=== PATIENT | male | born 2000 | race Caucasian/White ===

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

== ENCOUNTER 2021-07-08 21:15 | Emergency (ER) | payer BC, SELFPAY ==
[2021-07-08 21:17] VITALS: BP 147/83; PULSE 102; RESP 18; TEMP 36.6; O2SAT 100
[2021-07-08 21:24] VITALS: BP 147/83; PULSE 102; RESP 18; TEMP 36.6; O2SAT 100
--- NOTE | 2021-07-08 21:47 | ED.WOUNDLAC ---
HPI - Wound/Laceration General Chief Complaint: Wound/Laceration Stated Complaint: dog bite Time Seen by Provider: 07/08/21 21:25 Source: patient Mode of arrival: ambulatory Limitations: no limitations History of Present Illness HPI narrative: This is a 20 year old male that presents to the ER for lacerations to the nose sustained just prior to arrival. Reports his dog bit him. His dog is up to date on vaccinations. He is not up to date on tetanus. Denies fever. Related Data Allergies Allergy/AdvReac Type Severity Reaction Status Date / Time No Known Allergies Allergy Verified 07/08/21 21:20 Review of Systems Review of Systems: CONSTITUTIONAL: Denies fever SKIN: Reports laceration All systems reviewed & are unremarkable except as noted in HPI and below PMFSH Past Medical History Medical History (Updated 07/08/21 @ 23:02 by Hope Macias PA-C) Fracture of base of fifth metatarsal bone Healthy adult male Right foot pain Scoliosis Surgical History Surgical History No history of previous surgery Family History Family History Mother Patient's mother is in good health Father Patient's father is in good health Sibling Patient's brother is in good health Social History Social History Smoking status: Never smoker Second hand tobacco smoke exposure: No Alcohol intake: never Substance use: never Gender identity (if verbalized by the patient): Male Exam Narrative: GENERAL: Well-appearing, well-nourished, and in no acute distress. HEAD: Normocephalic, atraumatic. EYES: EOMI. ENT: Nares clear, no rhinorrhea or epistaxis. Nose with two 2cm linear lacerations into subcutaneous tissue EXTREMITIES: Normal range of motion. No edema. SKIN: Warm, dry, no rash. NEURO: No focal deficits. Alert and oriented x3. PSYCH: Normal mood and affect Course Vital Signs Vital signs: Vital Signs Temperature 97.9 F 07/08/21 21:17 Pulse Rate 102 H 07/08/21 21:17 Respiratory Rate 18 07/08/21 21:17 Blood Pressure 147/83 H 07/08/21 21:17 Pulse Oximetry 100 07/08/21 21:17 Temperature 97.9 F 07/08/21 21:24 Pulse Rate 102 H 07/08/21 21:24 Respiratory Rate 18 07/08/21 21:24 Blood Pressure 147/83 H 07/08/21 21:24 Pulse Oximetry 100 07/08/21 21:24 Procedures Laceration Laceration 1: Date: 07/08/21 Time: :59 Site: face Size (cm): 2 Description: linear Depth: simple, single layer Local Anesthetic: lidocaine 1% Amount of anesthesia used (mL): 2 Pre-repair: irrigated extensively ====== Skin Level ====== Skin layer closed with: nylon Size (cm): 5-0 Number of sutures: 4 Technique: simple, interrupted ====== Subcutaneous Layer ====== ====== Muscle Layer ====== ====== Tendon Layer ====== Laceration 2: Date: 07/08/21 Time: 22:59 Site: face Size (cm): 2 Description: linear Depth: simple, single layer Local Anesthetic: lidocaine 1% Amount of anesthesia used (mL): 2 Pre-repair: irrigated extensively ====== Skin Level ====== Skin layer closed with: nylon Size (cm): 5-0 Number of sutures: 5 Technique: simple, interrupted ====== Subcutaneous Layer ====== ====== Muscle Layer ====== ====== Tendon Layer ====== MDM - Wound/Laceration MDM Narrative Medical decision making narrative: Patient presents to the ER for lacerations to the nose sustained via dog bite. Wounds were thoroughly irrigated and closed with sutures. Patient updated on tetanus. His dog is up-to-date on vaccinations. Patient will be started on oral antibiotics. Was educated on wound care. Will be given plastics for follow-up. He was g
[2021-07-08] MEDS: TETANUS,DIPHTHERIA,AC PERTUSSIS ADULT (0.5 ML) BOOSTRIX IM (22:01)
[2021-07-08] MEDS: AMOXICILLIN/CLAVULANATE K 875-125 MG TAB 1 TABLET PO (22:02)
--- NOTE | 2021-07-08 22:06 | PC.NURSE ---
Hope QUACH at bedside for suturing.
== END 2021-07-08 23:25 | disposition home or self-care (01) ==
PROVIDERS: Emergency Provider Emergency Medicine; PCP Family Medicine
DX: S01.25XA Open bite of nose, initial encounter (principal); W54.0XXA Bitten by dog, initial encounter; Z23 Encounter for immunization
CPT/HCPCS: 12013; 90471; 90715; 99283; A9270

== ENCOUNTER 2021-09-29 20:06 | Emergency (ER) | payer BC, SELFPAY ==
[2021-09-29 20:11] VITALS: BP 122/74; PULSE 107; RESP 18; TEMP 37.4; O2SAT 97
[2021-09-29 22:09] VITALS: BP 119/74; PULSE 85; TEMP 37.2; O2SAT 99
--- NOTE | 2021-09-29 23:01 | PC.NURSE ---
Report received from Jaycob RN
[2021-09-29 23:11] LABS: Add Urine Microscopic? YES; Appearance Urine Clear (Clear); Bilirubin Urine Negative (Negative); Blood Urine Negative (Negative); Color Urine Amber (Yellow); Glucose Urine UA Negative (Negative); Ketones Urine Trace mg/dL (Negative); Leukocyte Esterase Ur Negative LEU/UL (Negative); Mucus Urine Heavy /lpf; Nitrate Urine Negative (Negative); Protein Urine 2+ mg/dL (Negative); RBC Urine 0-2 /hpf (0-2); WBC Urine 0-3 /hpf
[2021-09-29 23:12] LABS: Specific Grav Ur 1.031 (1.001-1.035)
--- NOTE | 2021-09-29 23:48 | ED.FEVER ---
HPI - Fever General Chief Complaint: Fever Stated Complaint: Fever Time Seen by Provider: 09/29/21 21:35 History of Present Illness HPI Narrative: Patient is a 20-year-old male who presents ER with concerns regarding possible COVID-19. His mother is COVID-19 positive and he has been vaccinated however he started having elevated temperature couple days ago with sore throat and some body aches. He has also noticed that his testicles feel a little swollen and that he is no longer having morning erections or spontaneous erections during the day. He has made no effort to achieve an erection on his own. He is not sexually active and has no concerns for sexual transmitted infection. No penile discharge. Related Data Allergies Allergy/AdvReac Type Severity Reaction Status Date / Time poison valentina extract Allergy Other Verified 07/14/21 10:27 Review of Systems Review of Systems: All systems reviewed & are unremarkable except as noted in HPI and below Constitutional: Constitutional: Denies chills and Reports fever(s) ENT: Denies nasal congestion and Reports sore throat Respiratory: Respiratory: Reports cough, Denies dyspnea and Denies wheezing Genitourinary: Genitourinary: Denies dysuria, Denies testicular pain and Denies urinary frequency Comments: Swollen testicles PMFSH Past Medical History Medical History (Updated 09/29/21 @ 23:53 by Du Landaverde MD) Fracture of base of fifth metatarsal bone Healthy adult male Right foot pain Scoliosis Surgical History Surgical History No history of previous surgery Family History Family History Mother Patient's mother is in good health Father Patient's father is in good health Sibling Patient's brother is in good health Social History Social History Smoking status: Never smoker Second hand tobacco smoke exposure: No Alcohol intake: never Substance use: never Gender identity (if verbalized by the patient): Male Exam Narrative: GENERAL: Well-appearing, well-nourished, and in no acute distress. HEAD: Normocephalic, atraumatic. CHEST: Clear to auscultation. No respiratory distress. HEART: Regular rate and rhythm. Normal peripheral pulses. : Normal-appearing external genitalia with a circumcised penis. Urethral meatus normal and no discharge noted. The testicles have normal lie, they are nontender, and they have no swelling. No palpable inguinal lymphadenopathy. EXTREMITIES: Normal range of motion. No edema. SKIN: Warm, dry, no rash. NEURO: Alert and oriented x3. PSYCH: Normal mood and affect. Course [employer] Physician Supervision Patient swabbed for Covid. UA without infection. Discharge home. Patient given reassurance. Vital Signs Vital signs: Vital Signs Temperature 99.4 F 09/29/21 20:11 Pulse Rate 107 H 09/29/21 20:11 Respiratory Rate 18 09/29/21 20:11 Blood Pressure 122/74 09/29/21 20:11 Pulse Oximetry 97 09/29/21 20:11 Temperature 99.0 F 09/29/21 22:09 Pulse Rate 85 09/29/21 22:09 Respiratory Rate 18 09/29/21 20:11 Blood Pressure 119/74 09/29/21 22:09 Pulse Oximetry 99 09/29/21 22:09 MDM - Fever Lab Data Labs: Lab Results 09/29/21 09/29/21 Range/Units 22:40 22:53 Urine Color Mel (Yellow) Urine Appearance Clear (Clear) Urine pH 5.0 (5.0-9.0) Ur Specific [place] 1.031 (1.001-1.035) Urine Protein 2+ H (Negative) mg/dL Urine Glucose (UA) Negative (Negative) mg/dL Urine Ketones Trace (Negative) mg/dL Ur Blood (Man) Negative (Negative) Urine Nitrate Negative (Negative) Urine Bilirubin Negative (Negative) Urine Urobilinogen 4.0 H (<2.0) mg/dL Leukocyte Esterase Rfl Negative (Negative) JAVI/UL Urine RBC 0-2 (0-2) /hpf Urine WBC 0-3 /hpf Urine Mucus Heavy H /l
[2021-09-30 12:27] LABS: SARS-CoV-2 RNA PCR Positive
== END 2021-09-30 00:06 | disposition home or self-care (01) ==
PROVIDERS: Emergency Provider Emergency Medicine; PCP Family Medicine
DX: U07.1 COVID-19 (principal)
CPT/HCPCS: 81001; 99283; C9803; U0003; U0005

== ENCOUNTER 2025-04-08 15:27 | Emergency (ER) | payer BC, SELFPAY ==
--- NOTE | 2025-04-08 15:29 | ED_ITS ---
HPI - Head Injury General Chief complaint: Head Injury Stated complaint: HEAD INJURY Time Seen by Provider: 04/08/25 15:28 Source: patient Mode of arrival: ambulatory Limitations: no limitations History of Present Illness HPI Narrative: Earl is a 24-year-old male patient presenting to the clinic today with complaints of a head injury. Reports he was playing hockey and he fell backwards and another player kneed him in the front of his head. He denies any loss of consciousness or any neck pain. States he does have a frontal headache. Currently rates his pain a 2 to 3/10. Was concerned for concussion so he decided to come out be evaluated. Denies any nausea, vomiting, dizziness, photosensitivity, or visual changes Related Data Allergies Allergy/AdvReac Type Severity Reaction Status Date / Time poison valentina extract Allergy Other Verified 07/14/21 10:27 Review of Systems Review of Systems: Pertinent positives per HPI. Patient denies any fever, chills, rash, headache, visual changes, dizziness, cough, runny nose, sore throat, shortness of breath, chest pain, palpitations, nausea, vomiting, diarrhea, constipation, abdominal pain, or any urinary issues. [facility] Past Medical History Medical History Fracture of base of fifth metatarsal bone Scoliosis Right foot pain Healthy adult male Surgical History Surgical History No history of previous surgery Family History Family History Mother Patient's mother is in good health Father Patient's father is in good health Sibling Patient's brother is in good health Social History Social History Smoking status: Never smoker Second hand tobacco smoke exposure: No Alcohol intake: never Substance use: never Living arrangements: with family Occupation/Education: student Gender identity (if verbalized by the patient): Male Comments At the time of my signature, I reviewed and agree with the nursing past medical, surgical, social, and family history. There is no relevant family history pertinent to the patient complaint. Exam Narrative: General: Well-developed, well nourished, in no apparent distress Head: Normocephalic, atraumatic Eyes: Pupils equally round and reactive to light bilaterally, EOM intact, sclera and conjunctive clear, no discharge, lids normal Ears: TMs intact and clear, ear canals clear, no drainage, grossly hearing normal. Nose: Nares patent, no discharge, no inflammation, no sinus tenderness. Mouth: Oropharynx without lesions or masses, good dentition, MMM. Tongue midline, even rise and fall of uvula Neck: Supple, trachea midline, no enlargement of anterior or posterior cervical nodes, no thyroid masses or goiter palpable. Cardio: Regular rate and rhythm, s1 and s2 normal, no murmur appreciated. Resp: Clear to auscultation bilaterally anteriorly and posteriorly, no rhonchi, rales, wheezing or rubs Musculoskeletal: No deformity, non-tender to palpation, grossly normal range of motion, muscle strength strong and equal, peripheral pulse strong, no edema, no cyanosis, normal gait and station Neuro: Alert and oriented x4 with normal speech, no focal deficits, cranial nerves I through XII intact, muscle strength 5 out of 5, sensation intact bilaterally, negative Romberg test Course Course Emergency Course: Portions of this record may have been created with voice recognition software. Level of Care: Express Care Visit Vital Signs Vital signs: Vital Signs Temperature 36.7 C 04/08/25 15:36 Pulse Rate 98 04/08/25 15:36 Respiratory Rate 16 04/08/25 15:36 Blood Pressure 131/90 04/08/25 15:36 Pulse Oximetry 99 04/08/25 15:36 Temperature 36.7 C 04/08/25 15:36 Pulse Rate 98 04/08/25 15:36 Respiratory Rate 16 04/08/25 15:36 Blood Pressure 131/90 04/08/25 15:36 Pulse Oximetry 99 04/08/25 15:36 Vital signs reviewed MDM - Head Injury MDM Narrative Medical decision making narrative: At the time of visit patient is resting comfortably on the exam table. Patient appears to be nontoxic. Neuro exam is normal in the clinic today. Reports headache a 2 to 3/10. No confusion, weakness, nausea, vomiting, dizziness, blurry vision, photosensitivity, or visual changes. Medications: Tylenol 1 g p.o. Plan: I suspect patient has a close head injury/headache. Tylenol 1 g p.o. given in the clinic today. Head injury red flag symptoms were reviewed with the patient. Supportive measures were discussed with the patient and they voiced understanding discharge instructions and agrees to treatment plan. Return precautions reviewed Differential Diagnosis Differential diagnosis: Likely concussion without loss of consciousness, epidural hematoma, closed head injury, subarachnoid hematoma, postconcussion s yndrome, subdural hematoma, concussion with loss of consciousness and other (Head contusion, acute headache) Discharge Plan Discharge Clinical Impression: Closed head injury Qualifiers: Encounter type: initial encounter Qualified Code(s): S09.90XA - Unspecified injury of head, initial encounter Headache Qualifiers: Headache type: post-traumatic Headache chronicity pattern: acute headache Intractability: not intractable Qualified Code(s): G44.319 - Acute post- traumatic headache, not intractable Patient Disposition: Home Condition: Stable Instructions: Antibiotic Form, Head Injury (ED), Acute Headache (ED) Additional Instructions: Tylenol as needed for headache for the first 24 hours then may take Ibuprofen, Increase fluids and stay well hydrated. Avoid taking any sedative medications such as muscle relaxers, benadryl, benzos, or narcotic pain medication. Watch for red flag symptoms such as confusion, lethargy, nausea/vomiting, worsening of headache, visual changes, increase in dizziness, or any stroke-like symptoms. If these symptoms develop go to the Emergency Room immediately. Reduce stimuli- lights, computers, video games, smart phones, tv, and noise over the next 2 days. Increase stimuli gradually. If headache worsens with stimuli reduce stimuli to tolerable level. Follow up with your PCP in 5- 7 days if symptoms persist as post-concussion syndrome treatment may need to be initiated. Patient Language: Estonian Follow-up/Referrals: Roberto Tamayo MD [Primary Care Provider] - Time of Disposition: 15:47 Quality NIHSS Nursing Documentation ED NIHSS nursing documentation: reviewed/agree
[2025-04-08 15:36] VITALS: BP 131/90; PULSE 98; RESP 16; TEMP 36.7; O2SAT 99
[2025-04-08] MEDS: ACETAMINOPHEN 500 MG TABLET 1000 MG PO (15:53)
== END 2025-04-08 15:50 | disposition home or self-care (01) ==
PROVIDERS: Emergency Provider Nurse Practitioner Family; PCP Family Medicine
DX: S09.90XA Unspecified injury of head, initial encounter (principal); W50.0XXA Accidental hit or strike by another person, initial encounter; Y93.22 Activity, ice hockey; G44.319 Acute post-traumatic headache, not intractable; M41.9 Scoliosis, unspecified
CPT/HCPCS: 99212; A9270; G0463